=== PATIENT | female | born 1950 | race Caucasian/White ===

== ENCOUNTER 2023-07-09 19:19 | Emergency (ER) | payer OTHER ==
[~2023-07-09] VITALS: Ht 157.5 cm; Wt 65.8 kg
[2023-07-09 19:22] VITALS: BP 157/70; PULSE 62; RESP 18; TEMP 98.6; O2SAT 99
[2023-07-09] MEDS ORDERED: ACETAMINOPHEN EXTRA STRENGTH 500 MG TAB PO ONE (19:55)
[2023-07-09 21:23] VITALS: BP 109/54; PULSE 77; RESP 15; TEMP 97.7; O2SAT 99
[2023-07-09] MEDS ORDERED: HYDROcodone/APAP 5/325 MG 1 TAB TAB PO ONE (21:45)
[2023-07-09] MEDS ORDERED: IBUP-2218 PO (21:53)
[2023-07-09] MEDS ORDERED: ACET-8905 PO (21:53)
== END 2023-07-09 22:03 | disposition home or self-care (01) ==
LOC: MED 19:19
DX: S62.326A Displaced fracture of shaft of fifth metacarpal bone, right hand, initial encounter for closed fracture (principal); S01.511A Laceration without foreign body of lip, initial encounter; S43.401A Unspecified sprain of right shoulder joint, initial encounter; S09.90XA Unspecified injury of head, initial encounter; M25.521 Pain in right elbow; I10 Essential (primary) hypertension; Z79.899 Other long term (current) drug therapy; Z79.1 Long term (current) use of non-steroidal anti-inflammatories (NSAID); Z88.5 Allergy status to narcotic agent; W01.198A Fall on same level from slipping, tripping and stumbling with subsequent striking against other object, initial encounter; Y93.01 Activity, walking, marching and hiking; Y92.89 Other specified places as the place of occurrence of the external cause; Y99.8 Other external cause status
CPT/HCPCS: 29125; 70450; 70486; 72125; 73030; 73080; 73130; 90471; 90715; 99285; Q0092